=== PATIENT | female | born 2005 | race Caucasian/White ===

== ENCOUNTER 2025-04-16 14:50 | Emergency (ER) | payer OTHER, SELFPAY ==
[2025-04-16 14:55] VITALS: BP 146/88
[2025-04-16 17:06] VITALS: BP 125/75
--- NOTE | 2025-04-16 17:17 | ED.GENMED ---
History of Present Illness
General
Chief Complaint: Cardiac Symptoms
Source: patient
Exam Limitations: none
Time Seen by Provider: 04/16/25 17:00
Nursing documentation reviewed up to this point in time: agreed with
History of Present Illness
History of Present Illness:
Patient to ED wt complaint of intermittent sharp chest pain. Hurts to take a deep breath. States she ran a triathlon on Monday. Pain started Monday. Brought to ED by parents for eval. Has had this pain in the past. SHe has a cardiology
evaluation as a child for family history of hear tissues. No abdnormal findings at that time. Echo normal. Denies fever/chill, recent illness. No cough or SOB
Past History
Past History
ED Past Medical History: None
Review of Systems
Review of Systems
Allergies reviewed?: Yes
All Other Systems: ROS reviewed and negative except as documented in HPI and ROS
Constitutional: Reports no symptoms
EENT: Reports no symptoms
Respiratory: Reports no symptoms
Cardiac: Reports chest pain
ABD/GI: Reports no symptoms
: Reports no symptoms
Musculoskeletal: Reports no symptoms
Skin: Reports no symptoms
Neurological: Reports no symptoms
Psychiatric: Reports no symptoms
Phy Exam
General Physical Exam
General Presentation: well appearing and no apparent distress
General age: appears stated age
General Skin: warm and dry
General Habitus: normal
General Mental: alert
Cardiovascular Exam
Cardiovascular Exam: regular rate/rhythm, no edema and no murmur
Pulmonary Exam
Pulmonary Exam: lungs clear and no respiratory distress
Musculoskeletal Exam
Musculoskeletal Exam: full ROM and neuro vasc intact
Skin Exam
Skin Exam: normal color, warm/dry and no rash
Psychiatric Exam
Psychiatric Exam: normal mood/affect
Course
Orders/Labs/Results
Orders:
Orders
04/16/25 14:50
EKG [Electrocardiogram (*1)] Urgent
Reason for Study: Chest Pain
EKG- Treatment ONCE
04/16/25 17:17
CR Chest - 2 Views Urgent
Comment:
Reason For Exam: pain
04/16/25 18:00
Complete Blood Count/With Diff Urgent
Comprehensive Metabolic Panel Urgent
D-Dimer Urgent
TSH Reflex To Free T4 Urgent
Abnormal Lab Results
04/16/25
18:00
MPV 11.0 H fL
(7.4-10.4)
Total Protein 9.0 H g/dl
(6.3-8.2)
Albumin 5.3 H g/dl
(3.5-5.0)
04/16/25 18:00
04/16/25 18:00
Vital Signs
Initial and Last Documented VS:
Initial Vital Signs
Temp Pulse Resp BP Pulse Ox
98 F 59 16 146/88 98
04/16/25 14:55 04/16/25 14:55 04/16/25 14:55 04/16/25 14:55 04/16/25 14:55
Last Documented Vital Signs
Temp Pulse Resp BP Pulse Ox
98 F 59 16 146/88 98
04/16/25 14:55 04/16/25 14:55 04/16/25 14:55 04/16/25 14:55 04/16/25 17:17
*Radiology
Radiology exam reviewed: radiology read reviewed
*Pulse Oximetry
SaO2: 98
Oxygen Mode of Delivery: Room air
Patient hypoxic: no
*EKG
Rate: normal
*Critical Care Note
Total Time (30-74mins, 75-104mins- exclusive of procedures): Not Applicable
Update Note
Update Note:
Patient to ED with intermittent sharp chest pain x 3 days. Hurts to take a deep breath. VSS, she remains afebrile. Labs, EKG, CXR reviewed with patient and parents. No concerning findings, no findings to explain he pain. Doubtful for cardiac
etiology. WIll discharge home, close follow upw tih PCP. given instructions on s/s to return to ED and she is agreeable to plan.
ED Attending Note
-
Portions of this chart may have been created with voice recognition software.� Occasional wrong word or��sound alike� substitutions may have occurred due to the inherent limitations of voice recognition software.
Discharge Plan
Departure
Patient Disposition: Home (Routine Discharge)
Date of Disposition: 04/16/25
Time of Disposition: 19:04
Patient with high blood pressure during this ER visit?: No
Condition: Good
Covid-19: Not Applicable
Discharge Problem:
Chest pain
Instructions: Chest Pain (DC)
Referrals:
NONE,* [Family Provider, Internal Medicine]
Activity Restrictions/Additional Instructions:
Return to the emergency department immediately for any changes in/worsening of your symptoms.
Interventions
Interventions:
*Risk Screen - Suicide Last Done: 04/16/25 14:55
*General Assessment Last Done: 04/16/25 14:55
*Neglect/Abuse Screening Last Done: 04/16/25 14:55
*ED- Fall Risk Assessment Last Done: 04/16/25 14:55
*ED COVID-19 Vaccine History Last Done: 04/16/25 14:55
ED- Pulmonary Assessment Last Done: 04/16/25 18:00
ED- Cardiac Assessment Last Done: 04/16/25 18:00
Discharge Date and Time
Print Language: SYRIAN
[2025-04-16 18:15] LABS: Hematocrit 42.6 % (37.0-47.0); Hemoglobin 14.1 g/dL (12.0-16.0); Mean Corp Hgb Conc. 33.1 g/dL (33.0-37.0); Mean Corpuscular Volume 88.9 fL (81.0-99.0); Nucleated Red Blood Cells % 0 %; Platelet Count 231 10^3/uL (130-400); Red Cell Dist. Width 13.3 % (11.5-14.5)
[2025-04-16 18:27] LABS: ALT (SGPT) 24 U/L (0-35); AST (SGOT) 29 U/L (14-36); Albumin 5.3 g/dl (3.5-5.0); Alkaline Phosphatase 87 U/L (38-126); Blood Urea Nitrogen 11 mg/dl (7-17); Calcium 9.7 mg/dl (8.4-10.2); Carbon Dioxide 26 mmol/L (22-30); Chloride 104 mmol/L (98-107); Glucose 90 mg/dl (70-99); Potassium 4.5 mmol/L (3.5-5.1); Sodium 140 mmol/L (135-145); Total Protein 9.0 g/dl (6.3-8.2); eGFR > 60.00
[2025-04-16 18:55] LABS: D-Dimer 0.29 ug/mlFEU (0.00-0.50)
[2025-04-16 19:00] VITALS: BP 106/62
== END 2025-04-16 19:16 | disposition home or self-care (01) ==
LOC: EMR 14:50
PROVIDERS: Nurse Practitioner; EMERGENCY PHYSICIAN Emergency Medicine
DX: R07.89 Other chest pain (principal)
CPT/HCPCS: 99283; 71046; 80053; 84443; 85025; 85379; 93005